=== PATIENT | male | born 1975 | race African-American/Black ===

== ENCOUNTER 2021-11-07 19:09 | Emergency (ER) | payer SELFPAY ==
--- NOTE | 2021-11-07 20:52 | RAD REPORT ---
EXAM DESCRIPTION: US - UPPER EXTREMITY VENOUS UNILATE - 11/07/2021 8:45 pm CLINICAL HISTORY: Pain COMPARISON: None. TECHNIQUE: Real-time sonographic evaluation of the right upper extremity deep venous system was perf ormed. FINDINGS: Normal compressibility, flow augmentation, phasic flow and spontaneous flow is identified in the right upper extremity deep venous system. No intraluminal filling defects seen. IMPRESSION: No DVT in the right upper extremity.
[2021-11-07] MEDS ORDERED: MORPHINE 4 MG/ML SYR ONE ×2 (20:58→22:09)
[2021-11-07] MEDS ORDERED: ONDANSETRON 4 MG/2 ML VIAL ONE (20:58)
--- NOTE | 2021-11-07 21:00 | RAD REPORT ---
EXAM DESCRIPTION: RAD - Hand Right 3 View - 11/07/2021 8:37 pm CLINICAL HISTORY: Pain COMPARISON: No comparisons FINDINGS/IMPRESSION: No acute fracture. No malalignment. No significant focal degenerative changes.
[2021-11-07 21:21] LABS: Absolute Lymphocytes (CBC) 2.1 K/uL (0.7-4.9); Hematocrit 37.3 % (39.6-49.0); Lymphocytes % 18.2 % (15.3-44.8); MCV 93.7 fL (80-100); MPV 9.8 fL (7.6-11.3); RBC Red Blood Cell Count 3.98 M/uL (4.33-5.43)
[2021-11-07 21:30] LABS: Protime INR 0.93
[2021-11-07 21:54] LABS: C-Reactive Protein 7.36 mg/L (<3.00); Potassium 3.5 mmol/L (3.5-5.1)
--- NOTE | 2021-11-07 22:42 | RAD REPORT ---
EXAM DESCRIPTION: CT - Upper Extremity W/ Cont - 11/07/2021 10:20 pm CLINICAL HISTORY: Hand swelling COMPARISON: Hand Right 3 View dated 11/07/2021 TECHNIQUE: Following dynamic nonionic IV contrast administration, axial 2 millimeter thick images of the upper extremity were obtained from the distal humerus to the finger tips. Sagittal and coronal r econstruction images were generated and reviewed. All CT scans are performed using dose optimization technique as appropriate and may include automate d exposure control or mA/KV adjustment according to patient size. FINDINGS: No fracture, periosteal reaction or acute bone process identifiable. No joint effusion at the elbow. No extravasation of contrast present. No hematoma or mass in the soft tissues. No skeletal muscle abnormality seen. No soft tissue strandin g or edema. Vasculature is unremarkable. Imaging of the hand is limited due to motion. No gross abnormality is evident. IMPRESSION: CT right upper extremity imaging shows no suspicious finding.
--- NOTE | 2021-11-07 23:33 | EDPHYS ---
Physician Documentation [facility] Name: Spenser Perez Age: 46 yrs Sex: Male : 1975 Arrival Date: 11/07/2021 Time: 19:12 Bed 8 Private MD: ED Physician Cole Bang HPI: 11/07 19:27 This 46 yrs old Male presents to ER via Ambulatory with complaints of Hand Swelling. rn 19:27 The patient or guardian reports decreased range of motion, pain, swelling. The rn complaints affect the right hand diffusely. Onset: The symptoms/episode began/occurred yesterday. Modifying factors: The symptoms are alleviated by nothing, the symptoms are aggravated by movement, dependent position. Associated signs and symptoms: Pertinent negatives: cyanosis distally, decreased sensation distally, fever, numbness distally, tingling distally. Severity of symptoms: At their worst the symptoms were moderate, in the emergency department the symptoms are unchanged. The patient has not experienced similar symptoms in the past. The patient has not recently seen a physician. Pt reports began to have pain yesterday, no direct trauma, felt pain to right hand and wrist, radiates up to forearm, cannot move hand/wrist without moderate to severe pain. NO fever. Has never happened before. . Historical: - Allergies: 19:19 No Known Allergies; ld1 - PMHx: 19:19 Asthma; ld1 - PSHx: 19:19 None; ld1 - Immunization history:: Adult Immunizations up to date, Client reports receiving the 2nd dose of the Covid vaccine. - Social history:: Smoking status: Patient reports the use of cigarette tobacco products, smokes one pack cigarettes per day. Patient uses street drugs, marijuana, Patient/guardian denies using alcohol. - Family history:: not pertinent. - Hospitalizations: : No recent hospitalization is reported. ROS: 19:27 Constitutional: Negative for fever, chills, and weight loss, Eyes: Negative for injury, rn pain, redness, and discharge, Neck: Negative for injury, pain, and swelling, Cardiovascular: Negative for chest pain, palpitations, and edema, Respiratory: Negative for shortness of breath, cough, wheezing, and pleuritic chest pain, Abdomen/GI: Negative for abdominal pain, nausea, vomiting, diarrhea, and constipation, Back: Negative for injury and pain, MS/Extremity: + right hand/wrist/forearm pain Skin: Negative for injury, rash, and discoloration, Neuro: Negative for headache, weakness, numbness, tingling, and seizure. Exam: 19:27 Constitutional: This is a well developed, well nourished patient who is awake, alert, rn appears uncomfortable Head/Face: Normocephalic, atraumatic. Eyes: Periorbital areas with no swelling, redness, or edema. Neck: Supple, full range of motion without nuchal rigidity, or vertebral point tenderness. No Meningismus. Cardiovascular: Bradycardic, regular. No pulse deficits. Respiratory: No increased work of breathing, no retractions or nasal flaring. Skin: Warm, dry with normal turgor. Normal color with no rashes, no lesions, and no evidence of cellulitis. No crepitus. MS/ Extremity: Pulses equal, no cyanosis. Neurovascular intact. Pain ful ROM right wrist and hand, no fusiform swelling of fingers, no focal fluctuance, no open wounds Neuro: Awake and alert, GCS 15, oriented to person, place, time, and situation. Cranial nerves II-XII grossly intact. Motor strength 5/5 in all extremities. Sensory grossly intact. Cerebellar exam normal. Normal gait. Vital Signs: 19:19 BP 159 / 84; Pulse 55; Resp 20; Temp 98.2(TE); Pulse Ox 99% on R/A; Weight 86.18 kg; ld1 Height 5 ft. 5 in. (165.10 cm); Pain 10/10; 21:18 BP 144 / 88; Pulse 50; Resp 19; Pulse Ox 99% on R/A; ll3 22:29 BP 125 / 81; Pulse 47; Resp 17; Pulse Ox 100% on R/A; ll3 23:38 BP 139 / 86; Pulse 51; Resp 16; Pulse Ox 97% on R/A; ll3 11/08 00:14 BP 139 / 86; Pulse 96; Resp 16; Temp 98(TE); Pulse Ox 100% ; kl 11/07 19:19 Body Mass Index 31.62 (86.18 kg, 165.10 cm) ld1 MDM: 11/07 19:19 Patient medically screened. rn 23:29 Differential diagnosis: early cellulitis, deep space infection of arm, early rn necrotizing fasciitis. Data reviewed: vital signs, nurses notes, lab test result(s), radiologic studies, and as a result, I will admit patient. Counseling: I had a detailed discussion with the patient and/or guardian regarding: the historical points, exam findings, and any diagnostic results supporting the discharge/admit diagnosis, lab results, radiology results, the need for further work-up and treatment in the hospital. Response to treatment: the patient's symptoms have markedly improved after treatment, and as a result, I will admit patient. Refusal of service: The patient/guardian displays adequate decision making capability and despite a detailed discussion of alternatives, benefits, risks, and consequences refuses: Admission to the hospital for further work-up and treatment. ED course: Pt refuses admission, spoke at length with him and family member, explained my concern is his pain out of proportion to my exam and possible early infection. My desire is to keep him in hospital with IV abx and consult ortho/surgery. Pt states absolutely not staying. Is planning on going to work tomorrow. Understands that this could result in loss of function of hand/arm and still refuses to stay. Tried to plead with family member and she states no sense in trying to convince him that he has already made up his mind. . 11/07 19:26 Order name: CBC with Diff; Complete Time: 21:25 rn 11/07 19:26 Order name: Basic Metabolic Panel; Complete Time: 21:57 rn 11/07 19:26 Order name: Protime (+inr); Complete Time: 21:35 rn 11/07 19:26 Order name: Ptt, Activated; Complete Time: 21:35 rn 11/07 19:26 Order name: Blood Culture Adult (2) rn 11/07 19:26 Order name: CRP; Complete Time: 21:57 rn 11/07 19:26 Order name: XRAY Hand RIGHT 3 View; Complete Time: 21:25 rn 11/07 19:26 Order name: Procalcitonin; Complete Time: 21:57 rn 11/07 19:40 Order name: Upper Extremity W/ Cont; Complete Time: 22:44 EDMS 11/07 19:54 Order name: UPPER EXTREMITY VENOUS UNILATE; Complete Time: 21:25 EDWY 11/07 19:26 Order name: IV Start; Complete Time: 21:16 rn Administered Medications: 21:15 Drug: Zofran (Ondansetron) 4 mg Route: IVP; Site: left antecubital; ll3 23:39 Follow up: Response: No adverse reaction ll3 21:16 Drug: morphine 4 mg Route: IVP; Infused Over: 4 mins; Site: left antecubital; ll3 23:39 Follow up: Response: No adverse reaction; No change in condition ll3 22:02 Drug: morphine 4 mg Route: IVP; Infused Over: 4 mins; Site: left antecubital; ll3 23:38 Follow up: BP 139 / 86; Pulse 51 bpm; Resp 16 bpm; Pulse Ox 97% RA; Response: No ll3 adverse reaction 23:38 Drug: Clindamycin 600 mg Route: IVPB; Infused Over: 30 mins; Site: left antecubital; ll3 Disposition Summary: 11/07/21 23:33 Discharge Ordered Location: Home rn Problem: new rn Symptoms: have improved rn Condition: Stable rn Diagnosis - Pain in right arm rn - Cellulitis of right upper limb rn Followup: rn - With: Emergency Department - When: Upon discharge from the Emergency Department - Reason: Recheck today's complaints, Continuance of care, Re-evaluation by your physician Discharge Instructions: - Discharge Summary Sheet rn - Cellulitis, Adult rn - Musculoskeletal Pain rn Forms: - Medication Reconciliation Form rn - Thank You Letter rn - Antibiotic rn interventional - Prescription Opioid Use rn Prescriptions: - Cephalexin 500 mg Oral Capsule - take 1 capsule by ORAL route every 12 hours for 10 days; 20 capsule; Refills: rn 0, Product Selection Permitted - Clindamycin HCl 300 mg Oral Capsule - take 1 capsule by ORAL route every 6 hours for 10 days; 40 capsule; Refills: 0, rn Product Selection Permitted - Tramadol 50 mg Oral Tablet - take 1 tablet by ORAL route every 8 hours as needed; 12 tablet; Refills: 0, rn Product Selection Permitted Signatures: Dispatcher [employer] EDMS Cole Bang MD MD rn Dibbern, Lauren, RN RN ld1 Edilson Monreal RN RN ll3 Corrections: (The following items were deleted from the chart) 19:54 19:26 Extremity Venous Uni Ltd+US.RAD.BRZ ordered. EDMS EDMS 20:34 19:26 Wrist Right 3 View+RAD.RAD.BRZ ordered. EDMS EDMS
--- NOTE | 2021-11-07 23:33 | ER ---
Nurse's Notes [facility] Name: Spenser Perez Age: 46 yrs Sex: Male : 1975 Arrival Date: 11/07/2021 Time: 19:12 Bed 8 Private MD: Diagnosis: Pain in right arm;Cellulitis of right upper limb Presentation: 11/07 19:19 Chief complaint: Patient states: Right hand swelling since this yesterday evening at ld1 2200 - pt carried grocery bags yesterday "Woke up and my hand is swollen and painful." Swelling noted to right hand. Coronavirus screen: At this time, the client does not indicate any symptoms associated with coronavirus-19. Ebola Screen: No symptoms or risks identified at this time. Initial Sepsis Screen: Does the patient meet any 2 criteria? No. Patient's initial sepsis screen is negative. Does the patient have a suspected source of infection? No. Patient's initial sepsis screen is negative. Risk Assessment: Do you want to hurt yourself or someone else? Patient reports no desire to harm self or others. Onset of symptoms was November 07, 2021. 19:19 Method Of Arrival: Ambulatory ld1 19:19 Acuity: MARIN 3 ld1 Triage Assessment: 19:19 General: Appears in no apparent distress. uncomfortable, Behavior is cooperative, ld1 anxious. Pain: Complains of pain in right hand Pain does not radiate. Pain currently is 10 out of 10 on a pain scale. Quality of pain is described as throbbing. EENT: No signs and/or symptoms were reported regarding the EENT system. Neuro: Level of Consciousness is awake, alert, obeys commands, Oriented to person, place, time, situation. Cardiovascular: Capillary refill < 3 seconds Patient's skin is warm and dry. Respiratory: Airway is patent Respiratory effort is even, unlabored. GI: Abdomen is round non-distended. : No signs and/or symptoms were reported regarding the genitourinary system. Derm: No signs and/or symptoms reported regarding the dermatologic system. Musculoskeletal: No signs and/or symptoms reported regarding the musculoskeletal system. Historical: - Allergies: 19:19 No Known Allergies; ld1 - PMHx: 19:19 Asthma; ld1 - PSHx: 19:19 None; ld1 - Immunization history:: Adult Immunizations up to date, Client reports receiving the 2nd dose of the Covid vaccine. - Social history:: Smoking status: Patient reports the use of cigarette tobacco products, smokes one pack cigarettes per day. Patient uses street drugs, marijuana, Patient/guardian denies using alcohol. - Family history:: not pertinent. - Hospitalizations: : No recent hospitalization is reported. Screenin/09 00:15 Abuse screen: Denies threats or abuse. Nutritional screening: No deficits noted. Tuberculosis screening: No symptoms or risk factors identified. Fall Risk None identified. Assessment: 11/07 21:18 General: Appears uncomfortable, Behavior is calm, cooperative. Pain: Complains of pain ll3 in right hand Pain currently is 10 out of 10 on a pain scale. Pain began 1 day ago. Is continuous. Neuro: Level of Consciousness is awake, alert, obeys commands, Oriented to person, place, time, situation. Respiratory: Respiratory effort is even, unlabored, Respiratory pattern is regular, symmetrical. Derm: Skin temperature is cool Swelling noted to right hand, pt states pain is 10/10. Musculoskeletal: Circulation, motion, and sensation intact. Reports numbness in right hand. 22:10 Reassessment: Patient and/or family updated on plan of care and expected duration. Pain ll3 level reassessed. Patient is alert, oriented x 3, equal unlabored respirations, skin warm/dry/pink. States pain meds did not help and pain is 10/10, Dr. Bang notified, medicated as ordered. Vital Signs: 19:19 BP 159 / 84; Pulse 55; Resp 20; Temp 98.2(TE); Pulse Ox 99% on R/A; Weight 86.18 kg; ld1 Height 5 ft. 5 in. (165.10 cm); Pain 10/10; 21:18 BP 144 / 88; Pulse 50; Resp 19; Pulse Ox 99% on R/A; ll3 22:29 BP 125 / 81; Pulse 47; Resp 17; Pulse Ox 100% on R/A; ll3 23:38 BP 139 / 86; Pulse 51; Resp 16; Pulse Ox 97% on R/A; ll3 11/08 00:14 BP 139 / 86; Pulse 96; Resp 16; Temp 98(TE); Pulse Ox 100% ; kl 11/07 19:19 Body Mass Index 31.62 (86.18 kg, 165.10 cm) ld1 ED Course: 11/07 19:12 Patient arrived in ED. bp1 19:18 Cole Bang MD is Attending Physician. rn 19:19 Arm band placed on right wrist. ld1 19:21 Triage completed. ld1 20:39 XRAY Hand RIGHT 3 View In Process Unspecified. EDMS 20:46 UPPER EXTREMITY VENOUS UNILATE In Process Unspecified. EDMS 21:07 Initial lab(s) drawn, by me, sent to lab. ll3 21:15 Edilson Monreal, RN is Primary Nurse. ll3 21:18 Inserted saline lock: 22 gauge in left antecubital area, using aseptic technique. Blood ll3 collected. 22:22 Upper Extremity W/ Cont In Process Unspecified. EDMS 11/08 00:14 No provider procedures requiring assistance completed. IV discontinued, intact, kl bleeding controlled, No redness/swelling at site. Pressure dressing applied. 00:15 Patient has correct armband on for positive identification. kl Administered Medications: 11/07 21:15 Drug: Zofran (Ondansetron) 4 mg Route: IVP; Site: left antecubital; ll3 23:39 Follow up: Response: No adverse reaction ll3 21:16 Drug: morphine 4 mg Route: IVP; Infused Over: 4 mins; Site: left antecubital; ll3 23:39 Follow up: Response: No adverse reaction; No change in condition ll3 22:02 Drug: morphine 4 mg Route: IVP; Infused Over: 4 mins; Site: left antecubital; ll3 23:38 Follow up: BP 139 / 86; Pulse 51 bpm; Resp 16 bpm; Pulse Ox 97% RA; Response: No ll3 adverse reaction 23:38 Drug: Clindamycin 600 mg Route: IVPB; Infused Over: 30 mins; Site: left antecubital; ll3 Medication: 11/08 00:15 VIS not applicable for this client. kl Outcome: 11/07 23:33 Discharge ordered by . rn 11/08 00:15 Discharged to home ambulatory, with family. Condition: good Discharge instructions given to patient, significant other, Instructed on discharge instructions, follow up and referral plans. medication usage, Demonstrated understanding of instructions, follow-up care, medications, Prescriptions given X 3. 00:15 Patient left the ED. kl Signatures: Dispatcher [employer] Mariaelena Broderick RN RN kl Nieto, Roman, MD MD rn [place]ia[place], Brittany bp1 Dibbern, Lauren, RN RN ld1 Edilson Monreal RN RN ll3 Corrections: (The following items were deleted from the chart) 11/07 19:32 19:19 Acuity: MARIN 4 ld1 ld1 22:28 21:50 Reassessment: Patient and/or family updated on plan of care and expected ll3 duration. Pain level reassessed. Patient is alert, oriented x 3, equal unlabored respirations, skin warm/dry/pink. States pain meds did not help and pain is 12/09, Dr. Bang notified, medicated as ordered ll3
[2021-11-07] MEDS ORDERED: CLINDAMYCIN 600MG/D5W 600 MG/50 ML BAG IV ONE (23:44)
[2021-11-08 03:16] VITALS: BP 139/86
[2021-11-08 03:18] VITALS: TEMP 98; O2SAT 100
== END 2021-11-08 00:15 | disposition home or self-care (01) ==
LOC: ER 19:09
DX: L03.113 Cellulitis of right upper limb (principal); F17.210 Nicotine dependence, cigarettes, uncomplicated
CPT/HCPCS: 36415; 73201; 80048; 84145; 85025; 85610; 85730; 86140; 87040; 93971; 96374; 96375; 99284; J2405; Q9967